=== PATIENT | male | born 1935 | race Caucasian/White ===

== ENCOUNTER 2018-07-22 17:14 | Inpatient (IN) | payer MEDICARE, OTHER ==
[~2018-07-22] VITALS: Ht 177.8 cm; Wt 93.6 kg
[~2018-07-22 17:14] MED LIST: ALBU90OI6 INH; ALBU90OI61 INH; AMLO10 PO; ASCO500 PO; ATOR20 PO; CALCA500CH PO; CEPH500 PO; CHOL10002 PO; CIPR500 PO; CLOP75 PO; DIAZ5 PO; DIPASPER PO; DOC250 PO; FERR325 PO; FISH1000 PO; FLUN25SP; FLUNNIA; Ferrous Sulfat325 M2 PO; Flurbiprofen100 MG; HYDMOR2 PO; HYDR1TAB94 PO; INSUASPI SC; INSULANI SC; INSULANI SUBQ; INSULANPEN SC; INSULIN NOVOLIN R; Ipratropium Bro30 ML; LEVFLO500 PO; LISHYD2012 PO; LISI20 PO; Lopressor 25 mg25 MG PO; METF500 PO; METO50 PO; MOME220I IH; Novolog100 UNIT/2 SC; OMEP20ER PO; OMEPRAZOLE MAGN20 MG PO; ONDA4ODT MM; OXYACE7.5T PO; ROSU10TA PO; RXLORA1 PO; RXOXYACE PO; SIMV80 PO; TAMS.4ER PO; ZOLP5 PO
[2018-07-22] MEDS ORDERED: TERA5 PO (17:52)
[2018-07-22] MEDS ORDERED: LOSARTAN POTAS100 MG PO (17:52)
[2018-07-22] MEDS ORDERED: BUDE6HFA INH (17:53)
[2018-07-22] MEDS ORDERED: Cranberry300 MG PO (17:53)
[2018-07-22] MEDS ORDERED: SPIRIVA RESPIMAT4 GM INH (17:53)
[2018-07-22] MEDS ORDERED: SUPER B MAXI C0.4 MG PO (17:54)
[2018-07-22 18:26] LABS: International Normalized Ratio 0.98; Prothrombin Time Results 10.4 Sec (9.7-11.5)
[2018-07-22 18:29] LABS: Alanine Aminotransfer (ALT/SGP 23 U/L (12-78); Albumin, Blood 3.5 g/dL (3.4-5.0); Alk Phos 104 U/L (50-136); Anion Gap 9 mmol/L (6-16); Aspartate Aminotrans (AST/SGOT 15 U/L (12-37); Bilirubin, Total 0.2 mg/dL (0.1-1.0); Blood Urea Nitrogen 19 mg/dL (8-24); Bun/Creatinine Ratio 19.9 (12.0-20.0); CO2, Blood 24 mmol/L (21-32); Calcium, Blood 8.8 mg/dL (8.5-10.1); Chloride, Blood 101 mmol/L (98-108); Creatinine, Blood 0.96 mg/dL (0.60-1.20); Globulin, Blood 3.5 g/dL (2.2-4.0); Glomerular Filtration Rate >60 (60-); Glucose, Blood 222 mg/dL (70-99); Magnesium, Blood 1.9 mg/dL (1.6-2.4); Potassium, Blood 3.4 mmol/L (3.5-5.5); Sodium, Blood 134 mmol/L (136-145); Troponin I <0.015 ng/mL (0.000-0.040)
[2018-07-22 18:32] LABS: BASOPHILS ABSOLUTE AUTO 0.02 K/mm3 (0.00-0.23); BASOPHILS PERCENT AUTO 0 % (0-2); EOSINOPHILS ABSOLUTE AUTO 0.13 K/mm3 (0.00-0.68); EOSINOPHILS PERCENT AUTO 2 % (0-6); Hematocrit 33.4 % (37.0-53.0); Hemoglobin 11.3 g/dL (13.5-17.5); IMMATURE GRAN ABSOLUTE AUTO 0.05 K/mm3 (0.00-0.10); IMMATURE GRAN PERCENT AUTO 1 % (0-1); LYMPHOCYTES ABSOLUTE AUTO 1.42 K/mm3 (0.84-5.20); LYMPHOCYTES PERCENT AUTO 18 % (21-46); MONOCYTES ABSOLUTE AUTO 0.72 K/mm3 (0.16-1.47); MONOCYTES PERCENT AUTO 9 % (4-13); Mean Corpuscular HGB Conc 33.8 g/dL (31.5-36.5); Mean Corpuscular Volume 92 fL (80-100); Mean Platelet Volume 11.2 fL (9.1-12.4); NEUTROPHILS ABSOLUTE AUTO 5.51 K/mm3 (1.96-9.15); NEUTROPHILS PERCENT AUTO 70 % (41-73); Platelet Count 190 K/mm3 (150-400); RDW Coefficient Variation 12.2 % (11.7-14.2); RDW Standard Deviation 41.1 fL (35.1-46.3); Red Blood Cell Count 3.64 M/mm3 (4.30-5.90); White Blood Cell Count 7.85 K/mm3 (4.00-11.30)
[2018-07-22] MEDS ORDERED: FISH OIL 1,0001 EAC2 PO (19:17)
[2018-07-22] MEDS ORDERED: PRESERVISION A1 EACH PO (19:17)
[2018-07-22] MEDS ORDERED: MAGNESIUM250 MG PO (19:18)
[2018-07-22] MEDS ORDERED: CO Q10200 MG PO (19:18)
[2018-07-22] MEDS ORDERED: BENADRYL25 MG PO (19:23)
[2018-07-22] MEDS ORDERED: Flonase 0.05% N16 GM (19:27)
[2018-07-22] MEDS ORDERED: CHLO25B PO (20:24)
[2018-07-22 20:31] LABS: Free Thyroxine 0.82 ng/dL (0.70-1.60)
[2018-07-22] MEDS ORDERED: ZOLP5 PO (20:32)
[2018-07-22 20:33] LABS: Thyroid Stimulating Hormone 1.26 uIU/mL (0.360-4.800)
[2018-07-23 01:09] LABS: Hematocrit 31.9 % (37.0-53.0); Hemoglobin 10.8 g/dL (13.5-17.5); Mean Corpuscular HGB 31.2 pg (26.0-34.0); Mean Corpuscular HGB Conc 33.9 g/dL (31.5-36.5); Mean Corpuscular Volume 92 fL (80-100); Mean Platelet Volume 10.9 fL (9.1-12.4); Platelet Count 168 K/mm3 (150-400); RDW Coefficient Variation 12.3 % (11.7-14.2); RDW Standard Deviation 41.3 fL (35.1-46.3); Red Blood Cell Count 3.46 M/mm3 (4.30-5.90)
[2018-07-23 01:23] LABS: Anion Gap 10 mmol/L (6-16); Blood Urea Nitrogen 19 mg/dL (8-24); Bun/Creatinine Ratio 20.7 (12.0-20.0); CO2, Blood 25 mmol/L (21-32); Calcium, Blood 8.5 mg/dL (8.5-10.1); Chloride, Blood 103 mmol/L (98-108); Creatinine, Blood 0.92 mg/dL (0.60-1.20); Glomerular Filtration Rate >60 (60-); Glucose, Blood 224 mg/dL (70-99); Potassium, Blood 3.2 mmol/L (3.5-5.5); Sodium, Blood 138 mmol/L (136-145)
[2018-07-23 01:28] LABS: CPK Creatine Kinase 74 U/L (39-308); Creatine Kinase MB 1.6 ng/mL (0.0-3.6); Creatine Kinase MB Index 2.2 (0.0-4.0); Troponin I <0.015 ng/mL (0.000-0.040)
[2018-07-23] MEDS ORDERED: Loratadine10 MG PO (01:37)
--- NOTE | 2018-07-23 05:14 | NUR ---
RESTED QUIETLY T\O NIGHT, RHYTHM CONTIUES TO BE SINUS NO PAUSES, ROOM TIDIED, CALL LIGHT IN REACH WILL CONTINUE TO MONITOR TILL DAYSHIFT HANDOFF
--- NOTE | 2018-07-23 08:00 | NUR ---
pt laying in bed awake a/ox3, pleasant and cooperative with care, follows commands well, denies pain sob or dizziness, states he did not sleep much last night, lungs are clear t/o, resp even and unlabored, no cough noted, hrr, tele in place running sr per monitor, see strip, no edema noted, ppp+2, cap refill <3sec, vs stable, afebrile, iv site is clear and patent, btx4, abd flat soft nontender, voids without diff, skin c/w/d, ar sky call light in reach, plan for cardiology to see him today.
[2018-07-23 09:53] LABS: CPK Creatine Kinase 100 U/L (39-308); Creatine Kinase MB 2.1 ng/mL (0.0-3.6); Creatine Kinase MB Index 2.1 (0.0-4.0); Troponin I <0.015 ng/mL (0.000-0.040)
--- NOTE | 2018-07-23 12:29 | NUR ---
pt states he would take much more insulin at home than we are giving. will discuss with when he comes to round. pt has no complaints at this time, sitting up to eat lunch. call light in reach.
--- NOTE | 2018-07-23 12:46 | NUR ---
Per admit trigger, I met with Mr. Torres to discuss an Advanced Directive. He tells me he already has one completed at the [facility]. I will advised RN to fax request for document from [facility]. Mr. Torres is active in his [employer] and will be visited by Father Urban throughout hospitalization.
--- NOTE | 2018-07-23 18:12 | NUR ---
PT HERE, NO ACUTE CHANGES THIS SHIFT. PLAN TO GO HOME ON A HEART MONITOR TOMORROW. CALL LIGHT IN REACH.
--- NOTE | 2018-07-24 03:20 | NUR ---
ASSUMED CARE OF PATIENT AT APPROXIMATELY 1900 FROM MARILEE Dumont RN. PATIENT ALERT AND ORIENTED X4; INDEPENDENT IN ROOM. SR W/ BBB ON TELE; OXYGEN SATURATION ABOVE 90% ON ROOM AIR. PATIENT DENIES PAIN, NUMBNESS, TINGLING, DIZZINESS AND NAUSEA. PATIENT REPORTS GOING HOME TODAY WITH 30 DAY HEART MONITOR DEVICE. 2X PIV S/L. LEFT WRIST IN IMMOBILIZER FROM RECENT SURGERY. PATIENT CURRENTLY SLEEPING IN BED; CALL LIGHT IN REACH; BED IN LOWEST POSISTION; WILL CONTINUE TO MONITOR AND ASSESS UNTIL END OF SHIFT.
[2018-07-24 03:58] LABS: BASOPHILS ABSOLUTE AUTO 0.01 K/mm3 (0.00-0.23); BASOPHILS PERCENT AUTO 0 % (0-2); EOSINOPHILS ABSOLUTE AUTO 0.16 K/mm3 (0.00-0.68); EOSINOPHILS PERCENT AUTO 2 % (0-6); Hematocrit 32.8 % (37.0-53.0); IMMATURE GRAN ABSOLUTE AUTO 0.02 K/mm3 (0.00-0.10); IMMATURE GRAN PERCENT AUTO 0 % (0-1); LYMPHOCYTES ABSOLUTE AUTO 1.21 K/mm3 (0.84-5.20); LYMPHOCYTES PERCENT AUTO 16 % (21-46); MONOCYTES ABSOLUTE AUTO 0.75 K/mm3 (0.16-1.47); MONOCYTES PERCENT AUTO 10 % (4-13); Mean Corpuscular HGB 31.6 pg (26.0-34.0); Mean Corpuscular HGB Conc 33.5 g/dL (31.5-36.5); Mean Corpuscular Volume 94 fL (80-100); Mean Platelet Volume 10.8 fL (9.1-12.4); NEUTROPHILS ABSOLUTE AUTO 5.23 K/mm3 (1.96-9.15); NEUTROPHILS PERCENT AUTO 71 % (41-73); Platelet Count 172 K/mm3 (150-400); RDW Coefficient Variation 12.2 % (11.7-14.2); RDW Standard Deviation 42.2 fL (35.1-46.3); Red Blood Cell Count 3.48 M/mm3 (4.30-5.90); White Blood Cell Count 7.38 K/mm3 (4.00-11.30)
[2018-07-24 04:21] LABS: Anion Gap 9 mmol/L (6-16); Blood Urea Nitrogen 16 mg/dL (8-24); Bun/Creatinine Ratio 20.4 (12.0-20.0); CO2, Blood 27 mmol/L (21-32); Calcium, Blood 8.7 mg/dL (8.5-10.1); Chloride, Blood 100 mmol/L (98-108); Creatinine, Blood 0.78 mg/dL (0.60-1.20); Glomerular Filtration Rate >60 (60-); Glucose, Blood 188 mg/dL (70-99); Potassium, Blood 3.3 mmol/L (3.5-5.5); Sodium, Blood 136 mmol/L (136-145)
--- NOTE | 2018-07-24 11:08 | NUR ---
BEGINNING OF SHIFT Assumed care of pt at 0700. Bedside report received from Vanita ORANTES. Pt on room air. Independent in room. No events per telemetry. Dr Davila in to see pt. States plan for pt to go home today. Dr Venegas spoke with this RN, plan stated for pt to have heart monitor placed prior to discharge and pt to follow up with cardiology afterwards. Bed in lowest position. Call light in reach. Pt denies need at this time.
--- NOTE | 2018-07-24 12:02 | NUR ---
Met pt. sitting up in bed coming out from shower, report doing well and may go home today or mena offered prayers for pt.
[2018-07-24] MEDS ORDERED: Humalog100 UNIT/3 SC (12:15)
[2018-07-24] MEDS ORDERED: DULERA 200 MCG/13 GM INH (12:22)
[2018-07-24] MEDS ORDERED: HYDCHL12.5 PO (12:23)
[2018-07-24] MEDS ORDERED: POTCHL10ER PO (12:26)
--- NOTE | 2018-07-24 14:33 | NUR ---
DISCHARGE Pt discharged from unit at 1320. Pt had continuous heart monitor in place at time of discharge. New medications called to [facility] pharmacy. Pt verbalizes understanding of medication changes and follow up appointments. Pt departed from unit via wheelchair accompanied by family and Gabriella CHOI.
== END 2018-07-24 13:20 | disposition home or self-care (01) | DRG 310 ==
LOC: ER 17:14 → PCU 18:50
PROVIDERS: Emergency Medicine; Internal Medicine; ADMIT Internal Medicine
DX: I48.91 Unspecified atrial fibrillation (principal); E87.6 Hypokalemia; I49.5 Sick sinus syndrome; D50.9 Iron deficiency anemia, unspecified; J44.9 Chronic obstructive pulmonary disease, unspecified; K21.9 Gastro-esophageal reflux disease without esophagitis; M81.0 Age-related osteoporosis without current pathological fracture; Z85.118 Personal history of other malignant neoplasm of bronchus and lung; Z85.51 Personal history of malignant neoplasm of bladder; I12.9 Hypertensive chronic kidney disease with stage 1 through stage 4 chronic kidney disease, or unspecified chronic kidney disease; E11.22 Type 2 diabetes mellitus with diabetic chronic kidney disease; N18.3 Chronic kidney disease, stage 3 (moderate); E78.5 Hyperlipidemia, unspecified; Z87.891 Personal history of nicotine dependence; Z79.4 Long term (current) use of insulin
CPT/HCPCS: 36415; 71045; 80048; 80053; 82550; 82553; 82728; 82947; 83540; 83550; 83735; 84439; 84443; 84484; 85025; 85027; 85610; 93005; 93010; 93306; 94640; 94760; 99285-25; J1650; J7030

== ENCOUNTER 2018-09-20 09:35 | Observation (INO) | payer OTHER, MEDICARE ==
[~2018-09-20] VITALS: Ht 177.8 cm; Wt 96.0 kg
[~2018-09-20 09:35] MED LIST changes: +BENADRYL25 MG PO; +BUDE6HFA INH; +CHLO25B PO; +CO Q10200 MG PO; +Cranberry300 MG PO; +DULERA 200 MCG/13 GM INH; +FISH OIL 1,0001 EAC2 PO; +Flonase 0.05% N16 GM; +HYDCHL12.5 PO; +Humalog100 UNIT/3 SC; +LOSARTAN POTAS100 MG PO; +Loratadine10 MG PO; +MAGNESIUM250 MG PO; +POTCHL10ER PO; +PRESERVISION A1 EACH PO; +SPIRIVA RESPIMAT4 GM INH; +SUPER B MAXI C0.4 MG PO; +TERA5 PO
--- NOTE | 2018-09-20 18:29 | NUR ---
SUMMARY LEFT HEST DRESSING DRY AND INTACT. PATIENT AMBULATED IN HOGAN AND VOIDED POST PROCEDURE. PATIENT WITH 2/10 CHRONIC BACK PAIN AND DENIES PAIN AT PACEMAKER INSERTION SITE. SLING IN PLACE TO LEFT ARM, PATIENT IS AWARE OF RESTRICTION TO NOT RAISE LEFT ARM.
--- NOTE | 2018-09-21 07:14 | NUR ---
SHIFT SUMMARY PT POD#1 PACEMAKER PLACEMENT. AAOX4. DRESSING TO LEFT UPPER CHEST SCANT PINK DRY DRAINAGE, NO INCREASE THIS SHIFT. LUE IN SLING TO REMIND PT OF RESTRICTIONS. IV ABX PER ORDERS. GOOD PO INTAKE + OUTPUT. PT RESTED WELL T/O NIGHT. CALL LIGHT IN REACH + PT USES FOR ASSISTANCE.
--- NOTE | 2018-09-21 08:00 | NUR ---
IMAGING HERE TO GET PT.
--- NOTE | 2018-09-21 14:50 | NUR ---
DISCHARGE: PT AND FAMILY REPORTS UNDERSTANDING OF DISCHARGE INSTRUCTIONS INCLUDING POST SURGERY INSTRUCTION SHEET. PT DENIES PAIN. PT BEEN UP IND WITH STEADY GAIT. PT EATING, DRINKING, VOIDING. PT BEEN CLEARED BY EARLIER THIS AM TO GO HOME. FAMILY GIVING PT RIDE HOME. PT BELONGINGS SENT WITH PT.
== END 2018-09-21 15:05 | disposition home or self-care (01) ==
LOC: MHTC 09:35 → SURS 12:22 → MHTC 12:56 → SURS 12:56
PROVIDERS: ADMIT Internal Medicine Cardiovascular Disease
DX: I49.5 Sick sinus syndrome (principal); I48.0 Paroxysmal atrial fibrillation; R55 Syncope and collapse; I12.9 Hypertensive chronic kidney disease with stage 1 through stage 4 chronic kidney disease, or unspecified chronic kidney disease; E11.22 Type 2 diabetes mellitus with diabetic chronic kidney disease; N18.9 Chronic kidney disease, unspecified; J44.9 Chronic obstructive pulmonary disease, unspecified; E78.5 Hyperlipidemia, unspecified; Z87.891 Personal history of nicotine dependence; Z88.2 Allergy status to sulfonamides; Z88.8 Allergy status to other drugs, medicaments and biological substances; Z91.013 Allergy to seafood; Z79.899 Other long term (current) drug therapy; Z79.4 Long term (current) use of insulin; Z79.82 Long term (current) use of aspirin
CPT/HCPCS: 33208; 71045; 71046; 82947; 94640; 94760; 99152; 99153; C1785; C1898; J0153; J0690; J1644; J2250; J3010; J7030; J7040; J7050

== ENCOUNTER → 2019-04-03 | Outpatient (CLI) | payer MEDICARE, OTHER | END | disposition home or self-care (01) | LOC: PLD 08:43 → LAB SHORT 08:43 | DX: D22.5 Melanocytic nevi of trunk (principal); D48.5 Neoplasm of uncertain behavior of skin | CPT/HCPCS: 88305 ==

== ENCOUNTER 2021-12-14 16:40 | Emergency (ER) | payer OTHER, MEDICARE ==
[~2021-12-14] VITALS: Ht 175.3 cm; Wt 72.6 kg
== END 2021-12-14 18:48 | disposition home or self-care (01) ==
LOC: ER 16:40
DX: M54.2 Cervicalgia (principal); E11.9 Type 2 diabetes mellitus without complications; J44.9 Chronic obstructive pulmonary disease, unspecified; I10 Essential (primary) hypertension; Z88.2 Allergy status to sulfonamides; Z88.8 Allergy status to other drugs, medicaments and biological substances; Z79.84 Long term (current) use of oral hypoglycemic drugs; Z79.4 Long term (current) use of insulin; Z95.0 Presence of cardiac pacemaker; V89.2XXA Person injured in unspecified motor-vehicle accident, traffic, initial encounter
CPT/HCPCS: 36415; 70450; 72125; 93005; 93010; 99284-25

== ENCOUNTER 2023-01-09 11:18 | Emergency (ER) | payer OTHER ==
[~2023-01-09] VITALS: Ht 175.3 cm; Wt 75.8 kg
[2023-01-09 14:01] LABS: BASOPHILS PERCENT AUTO 0 % (0-2); EOSINOPHILS ABSOLUTE AUTO 0.06 K/mm3 (0.00-0.68); EOSINOPHILS PERCENT AUTO 2 % (0-6); Hematocrit 28.8 % (37.0-53.0); Hemoglobin 9.5 g/dL (13.5-17.5); IMMATURE GRAN ABSOLUTE AUTO 0.05 K/mm3 (0.00-0.10); IMMATURE GRAN PERCENT AUTO 1 % (0-1); LYMPHOCYTES ABSOLUTE AUTO 0.65 K/mm3 (0.84-5.20); LYMPHOCYTES PERCENT AUTO 17 % (21-46); MONOCYTES ABSOLUTE AUTO 0.78 K/mm3 (0.16-1.47); MONOCYTES PERCENT AUTO 20 % (4-13); Mean Corpuscular HGB 30.1 pg (26.0-34.0); Mean Corpuscular Volume 91 fL (80-100); Mean Platelet Volume 11.9 fL (9.1-12.4); NEUTROPHILS ABSOLUTE AUTO 2.37 K/mm3 (1.96-9.15); NEUTROPHILS PERCENT AUTO 61 % (41-73); Platelet Count 153 K/mm3 (150-400); RDW Coefficient Variation 11.9 % (11.7-14.2); RDW Standard Deviation 39.9 fL (35.1-46.3); Red Blood Cell Count 3.16 M/mm3 (4.30-5.90); White Blood Cell Count 3.91 K/mm3 (4.00-11.30)
[2023-01-09 15:12] LABS: Bun/Creatinine Ratio 16.3 (12.0-20.0); Calcium, Blood 8.8 mg/dL (8.5-10.1); Creatinine, Blood 1.78 mg/dL (0.60-1.20); Potassium, Blood 4.5 mmol/L (3.5-5.5)
[2023-01-09] MEDS ORDERED: CEPH500 PO ×2 (15:29)
[2023-01-09 15:37] VITALS: BP 116/52
== END 2023-01-09 15:37 | disposition home or self-care (01) ==
LOC: ER 11:18
PROVIDERS: Physician Assistant
DX: L03.115 Cellulitis of right lower limb (principal); I10 Essential (primary) hypertension; E11.9 Type 2 diabetes mellitus without complications; J44.9 Chronic obstructive pulmonary disease, unspecified; Z88.1 Allergy status to other antibiotic agents; Z88.2 Allergy status to sulfonamides; Z79.84 Long term (current) use of oral hypoglycemic drugs; Z79.4 Long term (current) use of insulin
CPT/HCPCS: 80048; 85025; 93971; 99284-25